=== PATIENT | male | born 1945 | race Asian ===

== ENCOUNTER 2020-12-31 10:42 | Inpatient (IN) | payer OTHER, SELFPAY ==
[~2020-12-31] VITALS: Ht 165.1 cm; Wt 59.9 kg
--- NOTE | 2020-12-31 10:43 | NUR ---
PT BIBA TO BED 09.
[2020-12-31 10:44] VITALS: BP 120/52
[2020-12-31] MEDS ORDERED: NACL 0.9% 500 ML IV SCH (10:50)
--- NOTE | 2020-12-31 10:50 | NUR ---
75 Y/O MALE BIBA FROM [facility]. PT C/O DIARRHEA & GENERALIZED WEAKNESS X 2 DAYS. PT GOT COVID VACCINE (MODERNA) 2 DOSES, LAST ONE 2 WEEKS AGO. PT RATES PAIN 7/10 ALL OVER, BUT SPECIFICALLY TO L ARM. PT HAS DIALYSIS M/W/F AND SHUT TO L UPPER ARM. PER MEDIC, PT IS NOT ON O2 AT HOME, ONLY FOR COMFORT REASONS. PER MEDIC, PT SPO2 89 RA ON ARRIVAL, PUT PT ON 2L N/C SPO2 98. ON ARRIVAL TO HOSPITAL, RA, O2 96% PT PUT ON 2L N/C NOW 99%. PT DENIES N/D/SOB. PT C/O WATERY DIAHHREA X2 DAYS. ABD IS ROUND, SOFT, AND NONTENDER WITH ACTIVE BOWEL SOUNDS X4 QUAD. PT STATES HE DOES NOT AMBULATE AT HOME. PT IS IN DIAPER, STILL PRODUCES URINE AND DENIES DYSURIA. NO EDEMA PRESENT. PT IS A/O X4 WITH EVEN AND UNLABORED RESPIRATIONS. SKIN INTACT. PT ATTACHED TO SEAT COVERS TRIMMER. BED IN LOWEST POSITION, BRAKES LOCKED, X2 SIDERAILS UP FOR SAFETY. PMH: HYPOTHYROID, ASTHMA, GOUT, DIVERTICULITIS, ESRD WITH DIALYSIS ( M, W,F), HEART SURGERY ALLERGIES: MONTEL[place]AST
--- NOTE | 2020-12-31 11:02 | NUR ---
ERMD AT BEDSIDE EVALUATING PT.
[2020-12-31 11:12] LABS: BASOPHILS # (AUTO) 0.1 K/uL (0.00-0.22); BASOPHILS % (AUTO) 0.2 % (0.0-2.0); EOSINOPHILS # (AUTO) 0.1 K/uL (0-0.4); EOSINOPHILS % (AUTO) 0.5 % (0.0-4.0); HEMATOCRIT 26.9 % (36-52); HEMOGLOBIN 8.8 g/dL (12.0-18.0); LYMPHOCYTES # (AUTO) 0.6 K/uL (2.0-11.5); LYMPHOCYTES % (AUTO) 2.5 % (20.5-51.1); MEAN CORPUSCULAR HEMOGLOBIN 30 pg (27-31); MEAN CORPUSCULAR HGB CONC 33 g/dL (33-37); MEAN CORPUSCULAR VOLUME 92.3 fL (80-94); MONOCYTES # (AUTO) 0.9 K/uL (0.8-1.0); NEUTROPHILS % (AUTO) 92.8 % (42.2-75.2); PLATELET COUNT (AUTO) 582 K/uL (140-450); RED BLOOD CELL COUNT(AUTO) 2.92 MIL/uL (4.20-6.10); WHITE BLOOD COUNT (AUTO) 22.7 K/uL (4.8-10.8)
[2020-12-31] MEDS ORDERED: KETOROLAC 30 MG/ML VIAL IVP ONE (11:15)
[2020-12-31] MEDS ORDERED: ALBU0.0912 IH (11:18)
[2020-12-31] MEDS ORDERED: ASPI-1822 PO (11:18)
[2020-12-31] MEDS ORDERED: ACET325C8 PO (11:18)
[2020-12-31] MEDS ORDERED: NUTR887L11 PO (11:18)
[2020-12-31] MEDS ORDERED: PANT40EC PO (11:18)
[2020-12-31] MEDS ORDERED: NUTR887L4 PO (11:18)
[2020-12-31] MEDS ORDERED: NIFE90TE3 PO (11:18)
[2020-12-31] MEDS ORDERED: CARV6.25 PO (11:18)
[2020-12-31] MEDS ORDERED: ALLO100T21 PO (11:18)
[2020-12-31] MEDS ORDERED: LEVO0.114 PO (11:18)
[2020-12-31] MEDS ORDERED: SEVE800T6 PO (11:18)
[2020-12-31] MEDS ORDERED: DOCU-299 PO (11:18)
[2020-12-31 11:27] LABS: PROTHROMBIN TIME 10.7 secs (10.8-13.4)
--- NOTE | 2020-12-31 11:27 | NUR ---
PT VOIDED IN URINAL. URINE SAMPLE COLLECTED AND GIVEN TO KIRSTIE MOBLEY TECH
--- NOTE | 2020-12-31 11:29 | NUR ---
RAD AT BEDSIDE.
[2020-12-31 11:30] LABS: ALBUMIN 1.9 g/dL (3.4-5.0); ANION GAP 16.4 (8-16); ASPARTATE AMINOTRANSFERASE 8 U/L (15-37); CARBON DIOXIDE 23.4 mmol/L (21-32); CHLORIDE 96 mmol/L (98-107); GLUCOSE 165 mg/dL (74-106); POTASSIUM 3.8 mmol/L (3.5-5.1); SODIUM SERUM 132 mmol/L (136-145); TOTAL BILIRUBIN 0.4 mg/dL (0.0-1.0)
--- NOTE | 2020-12-31 11:33 | NUR ---
PT TAKEN TO CT VIA KARLA
[2020-12-31 11:36] LABS: UREA NITROGEN, BLOOD 68 mg/dL (7-18)
--- NOTE | 2020-12-31 11:36 | NUR ---
CRITICAL LAB VALUES: BUN [address] CLEMENTE MADE AWARE
[2020-12-31 11:37] LABS: CREATININE 7.8 mg/dL (0.6-1.3)
--- NOTE | 2020-12-31 11:41 | NUR ---
PT BACK FROM CT AND CONNECTED BACK TO MONITORS.
[2020-12-31 11:55] LABS: FREE T4 (FREE THYROXINE) 0.67 ng/dL (0.76-1.46); THYROID STIMULATING HORMONE 22.09 uIU/mL (0.34-3.74)
[2020-12-31 12:20] LABS: APPEARANCE,URINE CLEAR (CLEAR); BILIRUBIN,URINE NEGATIVE (NEGATIVE); BLOOD, URINE NEGATIVE (NEGATIVE); COLOR,URINE YELLOW (YELLOW); LEUKOCYTE ESTERASE ,URINE NEGATIVE (NEGATIVE); NITRITE, URINE NEGATIVE (NEGATIVE); UGLUCOSE 1+ (NEGATIVE)
[2020-12-31 12:28] LABS: RBC,URINE 0-5 /HPF (0-5); WBC,URINE 0-5 /HPF (0-5)
[2020-12-31] MEDS ORDERED: LEVOFLOXACIN 500 MG/D5W PREMIX 100 ML IV ONE (13:40)
[2020-12-31] MEDS ORDERED: metroNIDAZOLE 500 MG/NS PREMIX 100 ML IV ONE (13:40)
--- NOTE | 2020-12-31 13:44 | NUR ---
Luis Armando maria in [facility] - 12/31/20 at 1401 by [email or web address] PT BACK FROM CT AND CONNECTED TO MONITORS
--- NOTE | 2020-12-31 14:00 | NUR ---
INGRID SOLIS SAMPLE COLLECTED AND GIVEN TO VENDING MACHINE FILLER
--- NOTE | 2020-12-31 14:30 | NUR ---
PT HAD DIARRHEA IN DIAPER. PT CHANGED. NEW DIAPER AND CHUCKS APPLIED.
[2020-12-31] MEDS ORDERED: PANTOPRAZOLE 40 MG TABEC PO PRN (14:40)
[2020-12-31] MEDS ORDERED: ACETAMINOPHEN 325 MG TAB PO PRN (14:40)
[2020-12-31] MEDS ORDERED: POTASSIUM CHLORIDE 10 MEQ TABER PO PRN (14:40)
[2020-12-31] MEDS ORDERED: ONDANSETRON 4 MG/2 ML VIAL IM/IVP PRN (14:40)
[2020-12-31] MEDS ORDERED: INSULIN LISPRO SLIDING SCALE 100 UNITS/ML VIAL SUBQ PRN (14:40)
[2020-12-31] MEDS ORDERED: DOCUSATE SODIUM 100 MG GELCAP PO PRN (14:40)
[2020-12-31] MEDS ORDERED: DEXT 5% /NACL 0.9% 1,000 ML IV SCH (14:40)
[2020-12-31] MEDS ORDERED: NACL 0.9% 1,000 ML IV SCH (14:40)
[2020-12-31] MEDS ORDERED: DEXTROSE 50% 50 ML SYR IVP PRN (14:40)
--- NOTE | 2020-12-31 14:41 | NUR ---
REPORT GIVEN TO MARY WALTON. ETA 25 MINS
--- NOTE | 2020-12-31 14:51 | NUR ---
DID NOT ADMINISTER LEVAQUIN 500MG. GIVING IT TO ACCEPTING CLAUDINE HERNANDEZ IN TELEMETRY. ADMISTERING HERVE AT THIS TIME.
--- NOTE | 2020-12-31 15:05 | NUR ---
RECEIVED PATIENT FROM ER NURSE. PATIENT IS AOX4 AND ABLE TO MAKE NEEDS KNOWN. RESPIRATION EVEN AND UNLABORED. ON 2L NC SATING AT 98%. NO S/S OF RESPIRATORY DISTRESS NOTED. SKIN IS WARM AND DRY. IV SITE ON RAC 20 G INFUSING FLUIDS WELL. HAS AV SHUNT ON LEFT UPPER ARM WITH STITCHES. ABDOMEN SOFT, FLAT, AND NON-DISTENDED. BOWEL SOUNDS ACTIVE IN ALL 4 QUADRANTS. PLAN OF CARE DISCUSSED. SAFETY PRECAUTIONS IN PLACE. BED IN LOW POSITION. WILL CONTINUE TO MONITOR.
--- NOTE | 2020-12-31 15:10 | NUR ---
Patient will be admitted to care of Dr. Piyush Smith. Admited to Telemetry. Will go to room 114. Belongings list completed. Report to Josh WALTON.
[2020-12-31 15:55] LABS: MAGNESIUM 2.1 mg/dL (1.8-2.4)
[2020-12-31 16:00] VITALS: BP 110/73
[2020-12-31] MEDS: allopurinoL 100 MG TAB PO SCH (17:22)
[2020-12-31] MEDS: SEVELAMER CARBONATE 800 MG TAB PO SCH (17:22)
[2020-12-31] MEDS: BLOOD GLUCOSE MONITORING 1 DEV DEV FS SCH ×2 (17:30→20:15)
--- NOTE | 2020-12-31 17:30 | NUR ---
BLOOD GLUCOSE CHECK IS 86. NO INSULIN COVERAGE NEEDED.
--- NOTE | 2020-12-31 17:48 | NUR ---
ALL SCHEDULED MEDS GIVEN. PT IS STABLE. NO DISTRESS NOTED. WILL CONTINUE TO MONITOR.
--- NOTE | 2020-12-31 19:25 | NUR ---
ENDORSED TO AUTOMOTIVE SERVICE WRITER NURSE FOR CONTINUITY OF CARE. PT IS STABLE.
[2020-12-31 20:00] VITALS: BP 96/57
--- NOTE | 2020-12-31 20:00 | NUR ---
RECEIVED REPORT AT BEDSIDE FOR CONTINUITY OF CARE, PT IN STABLE CONDITION. PT IS AOX4, HE IS LYING IN BED WITH 2 LITERS 02 VIA N/C. HE HAS A RAC 20 GUAGE INTACT, ASYMPTOMATIC AND RUNNING NORMAL SALINE AT 60MLS/HR. PT NOTED WITH NEW LAV SHUNT THRILL AND BRUIT FELT. OTHERWISE SKIN INTACT. PT HAS ORDERED HD TOMORROW. V/S FOLLOWS: T 97.6 P 79 R 18 B/P 96/57 02 100% ON 2 LITERS N/C. ALL VERBALIZED REQUESTS ATTENDED BY STAFF. AND ALL ORDERED PRECAUTIONS IN PLACE.
--- NOTE | 2020-12-31 20:30 | NUR ---
PT FINGERSTICK IS 107, PT GIVEN ENSURE A SNACK. PT REQUESTED PO/PRN NEB TREATMENT, INFORMED RT TO FOLLOW UP. ALL ORDERED PRECAUTIONS IN PLACE.
--- NOTE | 2020-12-31 20:47 | NUR ---
PT SPO2 100% ON 2LNC HR 82 f 20. WILL CONTINUE TO MONITOR
[2020-12-31] MEDS ORDERED: metroNIDAZOLE 500 MG/NS PREMIX 100 ML IV SCH (21:00)
--- NOTE | 2020-12-31 21:30 | NUR ---
PT IN BED WAS GIVEN ASSISTANCE WITH PHONE CALL AND ALL OTHER VERBALIZED REQUESTS ATTENDED BY STAFF.
--- NOTE | 2020-12-31 22:45 | NUR ---
ROUNDS DONE, PT IN BED RESTING WITH EYES CLOSED, BUT AROUSABLE TO NAME. IV SITE INTACT AND RUNNING NORMAL SALINE AT 60 MLS/HR. PT DENIES ANY PAIN OR DISCOMFORT AT THIS TIME,. 02 IS 99% WITH 2 LITERS VIA N/C. ALL FALLS PRECAUTIONS IN PLACE.
[2021-01-01] VITALS: BP 111/56
--- NOTE | 2021-01-01 00:15 | NUR ---
PT IN BED RESTING WITH EYES CLOSED BUT AROUSABLE TO NAME. PT HAS NORMAL SALINE RUNNING AT 60MLS/HR VIA RAC 20G . RESPIRATIONS EVEN AND UNLABORED WITH 2 LITERS 02 VIA N/C. V/S FOLLOWS: T 97.3 P 82 R 19 B/P 111/56 02 100%. ALL ORDERED PRECAUTIONS IN PLACE.
--- NOTE | 2021-01-01 02:30 | NUR ---
PT HAD LARGE LOOSE BM AND WAS TURNED, CHANGED AND REPOSITIONED IN BED. [address] AND RUNNING AT 2 LITERS. IV SITE ON RAC INTACT AND CONTINUES ON NORMAL SALINE AT 60 MLS/HR. ALL ORDERED PRECAUTIONS IN PLACE.
[2021-01-01 04:00] VITALS: BP 92/46
--- NOTE | 2021-01-01 06:00 | NUR ---
PT SITTING IN BED HOB UP 35% HE CONTINUES ON 2 LITERS VIA N/C. N/S CONTINUES AT 60MLS/HR. PT FINGERSTICK IS 96, NO HUMALOG COVERAGE NEEDED. PT GIVEN DUE MEDS OF SYNTHROID. NO C/O VOICED AT THIS TIME. ALL ORDERED PRECAUTIONS IN PLACE.
[2021-01-01 06:20] LABS: MEAN CORPUSCULAR HGB CONC 32 g/dL (33-37); RED BLOOD CELL COUNT(AUTO) 2.39 MIL/uL (4.20-6.10)
[2021-01-01 06:30] LABS: MEAN CORPUSCULAR HEMOGLOBIN 30 pg (27-31); MEAN CORPUSCULAR VOLUME 92.8 fL (80-94); RED CELL DISTRIBUTION WIDTH 16.4 % (11.6-13.7); WHITE BLOOD COUNT (AUTO) 24.7 K/uL (4.8-10.8)
[2021-01-01 06:31] LABS: ANION GAP 18.6 (8-16); CARBON DIOXIDE 20.7 mmol/L (21-32); CHLORIDE 100 mmol/L (98-107); GLUCOSE 111 mg/dL (74-106); POTASSIUM 4.3 mmol/L (3.5-5.1); SODIUM SERUM 135 mmol/L (136-145)
[2021-01-01 06:42] LABS: CREATININE 8.4 mg/dL (0.6-1.3); UREA NITROGEN, BLOOD 94 mg/dL (7-18)
[2021-01-01] MEDS: LEVOTHYROXINE 0.112 MG TAB PO SCH (06:54)
[2021-01-01 06:57] LABS: HEMATOCRIT 22.3 % (36-52); HEMOGLOBIN 7.2 g/dL (12.0-18.0)
[2021-01-01] MEDS: BLOOD GLUCOSE MONITORING 1 DEV DEV FS SCH ×4 (06:58→21:29)
[2021-01-01 07:03] LABS: EOSINOPHILS % (MANUAL) 4 % (0-4); LYMPHOCYTES % (MANUAL) 8 % (20-46); MONOCYTES % (MANUAL) 6 % (5-12)
[2021-01-01 07:04] LABS: PLATELET COUNT (AUTO) 508 K/uL (140-450)
--- NOTE | 2021-01-01 07:25 | NUR ---
RECEIVED BEDSIDE REPORT FROM NIGHTSHIFT NURSE FOR CONTINUITY OF CARE.
[2021-01-01 08:00] VITALS: BP 106/50
[2021-01-01] MEDS: SEVELAMER CARBONATE 800 MG TAB PO SCH ×3 (08:00→17:16)
[2021-01-01] MEDS: NIFEdipine 90 MG TABER PO SCH (08:50)
[2021-01-01] MEDS: carvediloL 6.25 MG TAB PO SCH (08:51)
[2021-01-01] MEDS: ASPIRIN 81 MG TAB.CHEW PO SCH (08:51)
--- NOTE | 2021-01-01 08:51 | NUR ---
HELD AM MEDS DUE TO SCHEDULED DIALYSIS. ASSISTED PATIENT W/ TOILETING, SMALL SOFT BM. PATIENT ABLE TO TURN AND ASSIST W/ CARES. PATIENT ABLE TO MAKE NEEDS KNOWN, AOx4. SEEN PERFORMING ROUNDS AT BEDSIDE. WILL CONTINUE TO MONITOR. PATIENT HAS BREAKFAST TRAY AT BEDSIDE. SAFETY MEASURES IN PLACE. WILL CONTINUE TO MONITOR.
[2021-01-01] MEDS: LEVOFLOXACIN 250 MG/D5 PREMIX 50 ML IV SCH (09:00)
--- NOTE | 2021-01-01 09:19 | NUR ---
FNS REFERRAL RECEIVED FOR DIARRHEA >3 DAYS. PATIENT HAS BEEN SCREENED AND CATEGORIZED HIGH NUTRITION RISK. PATIENT WILL BE SEEN WITHIN 1-2 DAYS OF ADMISSION. 01/01/21-01/02/[address]
[2021-01-01] MEDS ORDERED: ALBUMIN HUMAN 25% 200 ML IV SCH (11:00)
[2021-01-01 12:00] VITALS: BP 105/60
[2021-01-01] MEDS: VANCOMYCIN 1,000 MG VIAL PO SCH ×2 (12:00→18:00)
--- NOTE | 2021-01-01 12:26 | NUR ---
SOCIAL WORK NOTE: Patient's Orientation Unable To Assess Information Provided By GOOD SHAFER - SON Comments SW WAS UNABLE TO MEET PATIENT AT BEDSIDE. SW COMPLETED ASSESSMENT WITH PATIENT'S SON. Surface Grinder, Realtionship and Phone Number [facility] [phone] Healthcare Power of Rubber Molder No Does Patient Have a POLST No Identifying Problems No Social Work Triggers Is A Social Work Consult Needed No Mandate Report Filed No Explanation Of Identifying Problems PATIENT IS A 75-YEAR-OLD MALE ADMITTED FOR INFLAMMATORY INFECTIOUS COLITIS. PATIENT HASP MHX OF CARDIAC DISORDERS, DIABETES, AND HYPERTENSION. Admitted From Fdc Facility Fdc Facility [facility] - [phone] Pre-Admission Level Of Functioning Status Independent/Ambulatory Level Of Functioning Comment PER SON, PATIENT IS INDEPENDENT AT BASELINE. Prior Resources/Services Used In Last 12 Months SNF Rehab/Skilled Prior Resources/Service Comments PATIENT IS A SKILLED PATIENT AND ON A BED HOLD. Prior DME No Prior DME Used Dialysis Hemodialysis Name And Phone Number of Dialysis Facility [facility] Out[facility] Days W ESRD Outpatient Time 0400 Living Situation Lives With Family House Other Living Situation/Comment PER SON, PATIENT LIVES AT [address] [place] [address]. Patient Had Caregiver No Home Support No Caregiver Issues Financial Issues No Known Financial Issue Referral To The Financial Counselor Needed No Factors/Needs No D/C Needs Identified Pt/Rep Participated In Discharge Plan Yes Patient/Family Agress With Discharge Plan Yes Discharge Plan Comments TENTATIVE DISCHARGE PLAN IS FOR PATIENT TO RETURN TO [facility]. DC Plan Status Initiated
--- NOTE | 2021-01-01 14:25 | NUR ---
01/01/21 RD INITIAL ASSESSMENT COMPLETED PLEASE REFER TO NUTRITION ASSESSMENT UNDER CARE ACTIVITY FOR ESTIMATED NUTRITIONAL NEEDS. 1. RECOMMEND MECHANICAL SOFT LOW FIBER RENAL 80 GM CCHO DIET TOLERATED 2. ENCOURAGE PO INTAKE ABOVE 75% 3. RECOMMEND NEPRO BID 4. RD TO FOLLOW-UP 2-3 DAYS, HIGH RISK AUGUSTA SUGGS, RD
--- NOTE | 2021-01-01 15:14 | NUR ---
ADMINISTERED PRESCRIBED MED PER MD ORDER. PATIENT IS RESTING. NO SIGNS OF DISTRESS NOTED. LUNCH TRAY AT BEDSIDE, PATIENT ATE APROX 25%. SAFETY MEASURES IN PLACE. WILL CONTINUE TO MONITOR.
[2021-01-01 16:00] VITALS: BP 110/55
--- NOTE | 2021-01-01 17:24 | NUR ---
ADMINISTERED PRESCRIBED MEDS PER MD ORDER. PATIENT RESTING IN BED. AWOKEN UPON ARRIVAL. MEDICATION EDUCATION PROVIDED. PATIENT VERBALIZED UNDERSTANDING. SAFETY MEASURES IN PLACE. WILL CONTINUE TO MONITOR.
--- NOTE | 2021-01-01 19:14 | NUR ---
BEDSIDE ENDORSEMENT TO NIGHTSHIFT NURSE FOR CONTINUITY OF CARE.
[2021-01-01 20:00] VITALS: BP 100/63
--- NOTE | 2021-01-01 21:22 | NUR ---
INFORM DR. ALLAN THAT THE PT IS ALLERGY TO METRONIDAZOLE - WILL WAIT THE RESPONSE
--- NOTE | 2021-01-01 22:14 | NUR ---
NO RESPONSE FROM DR. ALLAN - CHARGE NURSE INFORM - WILL TALK PHARMACIST WHY HE CARRIED OUT INSPITE OF PT HAS ALLERGY TO METRONIDAZOLE . Addendum: 01/01/21 at 2219 by Valeria Troncoso RN PER PHARMACY HE VERRIFIED HE METRONIDAZOLE HE SAID - IT IS STILL SAFE TO ADMINISTER TO THE PT . - CHARGE NURSE INFORM .
[2021-01-01] MEDS ORDERED: SODIUM ZIRCONIUM CYCLOSILICATE 10 GM POWD.PACK ONE (22:23)
[2021-01-01] MEDS: metroNIDAZOLE 500 MG/NS PREMIX 100 ML IV SCH (22:42)
[2021-01-02] VITALS: BP 100/60
--- NOTE | 2021-01-02 | NUR ---
MADE ROUNDS , NO S/X OF ACUTE DISTRESS NOTED . WILL CONT. TO MONITOR
[2021-01-02] MEDS: VANCOMYCIN 1,000 MG VIAL PO SCH ×4 (00:50→17:35)
[2021-01-02 04:00] VITALS: BP 112/60
--- NOTE | 2021-01-02 04:00 | NUR ---
NO COMPLAIN MADE . NO S/X OF CAUTE DISTRESS NOTED . WILL CONT. TO MONITOR .
--- NOTE | 2021-01-02 06:00 | NUR ---
RESTING ON BED .
[2021-01-02] MEDS: metroNIDAZOLE 500 MG/NS PREMIX 100 ML IV SCH (06:31)
[2021-01-02] MEDS: BLOOD GLUCOSE MONITORING 1 DEV DEV FS SCH ×4 (06:31→20:04)
[2021-01-02] MEDS: LEVOTHYROXINE 0.112 MG TAB PO SCH (06:36)
[2021-01-02 06:47] LABS: ANION GAP 14.8 (8-16); CARBON DIOXIDE 24.8 mmol/L (21-32); CHLORIDE 101 mmol/L (98-107); GLUCOSE 108 mg/dL (74-106); POTASSIUM 3.6 mmol/L (3.5-5.1); SODIUM SERUM 137 mmol/L (136-145); UREA NITROGEN, BLOOD 49 mg/dL (7-18)
[2021-01-02 07:05] LABS: BASOPHILS % (AUTO) 0.2 % (0.0-2.0); EOSINOPHILS # (AUTO) 0.1 K/uL (0-0.4); EOSINOPHILS % (AUTO) 0.6 % (0.0-4.0); HEMATOCRIT 21.8 % (36-52); LYMPHOCYTES # (AUTO) 0.6 K/uL (2.0-11.5); LYMPHOCYTES % (AUTO) 2.5 % (20.5-51.1); MEAN CORPUSCULAR HEMOGLOBIN 30 pg (27-31); MEAN CORPUSCULAR HGB CONC 32 g/dL (33-37); MEAN CORPUSCULAR VOLUME 92.8 fL (80-94); NEUTROPHILS # (AUTO) 23.4 K/uL (1.8-7.7); NEUTROPHILS % (AUTO) 92.7 % (42.2-75.2); PLATELET COUNT (AUTO) 514 K/uL (140-450); RED BLOOD CELL COUNT(AUTO) 2.35 MIL/uL (4.20-6.10); RED CELL DISTRIBUTION WIDTH 16.5 % (11.6-13.7)
[2021-01-02 07:13] LABS: CREATININE 5.8 mg/dL (0.6-1.3)
--- NOTE | 2021-01-02 07:36 | NUR ---
ENDORSED - PT - STABLE .
--- NOTE | 2021-01-02 07:36 | NUR ---
RECEIVED TRANSFER OF CARE REPORT FROM AM RN FOR CONTINUATION OF CARE.
--- NOTE | 2021-01-02 07:37 | NUR ---
PT FOUND AWAKE RESTING IN BED. PT STATES NO PAIN, NO DISTRESS, AND NO MEDICAL COMPLAINTS. PT HAS VISIBLE EQUAL RISE AND FALL UPON RESPIRATION. BED LOCKED IN LOWEST POSITION WITH 2 SIDE RAILS UP FOR SAFETY AND CALL LIGHT WITHIN REACH.
[2021-01-02 08:00] VITALS: BP 102/53
[2021-01-02 08:21] LABS: WHITE BLOOD COUNT (AUTO) 25.2 K/uL (4.8-10.8)
[2021-01-02] MEDS: carvediloL 6.25 MG TAB PO SCH (09:00)
[2021-01-02] MEDS: NIFEdipine 90 MG TABER PO SCH (09:00)
[2021-01-02] MEDS: PHARMACY COMMENTS MC SCH (09:00)
--- NOTE | 2021-01-02 09:30 | NUR ---
SPOKE WITH DR. COLE ABOUT PT HGB BEING 7.0. PER DR. COLE, HE SAID TO MONITOR AND TO REDRAW AROUND 1800. ORDERS RECEIVED. SAFETY MEASURES IN PLACE, WILL CONTINUE TO MONITOR
[2021-01-02] MEDS: ASPIRIN 81 MG TAB.CHEW PO SCH (09:48)
[2021-01-02] MEDS: SEVELAMER CARBONATE 800 MG TAB PO SCH ×3 (09:48→17:35)
--- NOTE | 2021-01-02 11:04 | NUR ---
PER DR COLE, DISCONTINUE FLAGYL.
--- NOTE | 2021-01-02 11:30 | NUR ---
PT BLOOD SUGAR IS 110. NO INSULIN NEEDED AT THIS TIME PER MD ORDER. SAFETY MEASURES IN PLACE. WILL CONTINUE TO MONITOR
[2021-01-02 12:00] VITALS: BP 143/76
--- NOTE | 2021-01-02 12:01 | NUR ---
PT HAD SOFT SEMI-FORMED/LIQUID BOWEL MOVEMENT. PT PERINEAL AREA IS CLEANED AND SHEETS CHANGED. PT TOLERATED CLEANING WELL.
--- NOTE | 2021-01-02 12:52 | NUR ---
PT FOUND AWAKE RESTING IN BED. PT STATES NO PAIN, NO DISTRESS, AND NO MEDICAL COMPLAINTS. PT HAS VISIBLE EQUAL RISE AND FALL UPON RESPIRATION. ASSISTED PT TO POSITION OF COMFORT. PROVIDED BLANKET TO PT. BED LOCKED IN LOWEST POSITION WITH 2 SIDE RAILS UP FOR SAFETY AND CALL LIGHT WITHIN REACH.
--- NOTE | 2021-01-02 13:29 | NUR ---
PT HAD SOFT SEMI-FORMED/LIQUID BROWN BOWEL MOVEMENT. PT PERINEAL AREA IS CLEANED. PT TOLERATED CLEANING WELL.
--- NOTE | 2021-01-02 14:42 | NUR ---
PT HAD 2 SOFT SEMI-FORMED/LIQUID BROWN BOWEL MOVEMENT. PT PERINEAL AREA IS CLEANED. PT TOLERATED CLEANING WELL. DR COLE NOTIFIED.
[2021-01-02] MEDS ORDERED: LOPERAMIDE 2 MG CAP PO PRN ×2 (14:55→20:45)
[2021-01-02] MEDS ORDERED: LOPERAMIDE 2 MG CAP PO SCH (15:15)
[2021-01-02] MEDS ORDERED: BISMUTH SUBSALICYLATE 15 ML UDBTL PO SCH (15:15)
--- NOTE | 2021-01-02 15:24 | NUR ---
PT HAD 2 LIQUID BROWN BOWEL MOVEMENT. PT PERINEAL AREA IS CLEANED. PT TOLERATED CLEANING WELL.
--- NOTE | 2021-01-02 15:34 | NUR ---
PT FOUND AWAKE RESTING IN BED. PT STATES NO DISTRESS. ADMINISTERED PRESCRIBED MEDICATIONS TO PT. PT HAS VISIBLE EQUAL RISE AND FALL UPON RESPIRATION. BED LOCKED IN LOWEST POSITION WITH 2 SIDE RAILS UP FOR SAFETY AND CALL LIGHT WITHIN REACH.
[2021-01-02 16:00] VITALS: BP 112/60
--- NOTE | 2021-01-02 16:30 | NUR ---
PT BLOOD SUGAR IS 106. NO INSULIN NEEDED AT THIS TIME. SAFETY MEASURES IN PLACE. WILL CONTINUE TO MONITOR
--- NOTE | 2021-01-02 16:44 | NUR ---
PT TO RECIEVE HD ON 01/03 INFORMED CHAPPELL. CHAPPELL VERBALIZED UNDERSTANDING. SAFETY MEASURES IN PLACE. WILL CONTINUE TO MONITOR
[2021-01-02] MEDS: allopurinoL 100 MG TAB PO SCH (17:35)
--- NOTE | 2021-01-02 17:39 | NUR ---
ADMINISTERED SCHED MED PRESCRIBED PER MD ORDER. PT TOLERATED WELL. MEDICATION EDUCATION PERFORMED. PT VERBALIZED UNDERSTANDING. SAFETY MEASURES IN PLACE. WILL CONTINUE TO MONITOR
[2021-01-02 18:22] LABS: HEMATOCRIT 22.1 % (36-52); MEAN CORPUSCULAR HEMOGLOBIN 29 pg (27-31); MEAN CORPUSCULAR HGB CONC 32 g/dL (33-37); MEAN CORPUSCULAR VOLUME 93.1 fL (80-94); PLATELET COUNT (AUTO) 481 K/uL (140-450); RED BLOOD CELL COUNT(AUTO) 2.37 MIL/uL (4.20-6.10); RED CELL DISTRIBUTION WIDTH 16.7 % (11.6-13.7)
--- NOTE | 2021-01-02 18:40 | NUR ---
PT RESTING IN BED. ABLE TO MAKE NEEDS KNOWN. RESPIRATIONS EVEN AND UNLABORED WITH NO SOB OR RESPIRATORY DISTRESS. WILL CONTINUE TO MONITOR
[2021-01-02 18:54] LABS: HEMOGLOBIN 6.9 g/dL (12.0-18.0); WHITE BLOOD COUNT (AUTO) 25.3 K/uL (4.8-10.8)
--- NOTE | 2021-01-02 18:55 | NUR ---
CRITICAL LAB WBC 25.3 AND HGB 6.9 RECEIVED FROM LAB. AIRCRAFT ENGINE CYLINDER MECHANIC DOCTOR NOTIFIED. Addendum: 01/02/21 at 1923 by Case Waite RN RN CRITICAL LAB WBC 25.3 AND HGB 6.[address] COLE NOTIFIED AND GAVE ORDERS FOR 1 UNIT [facility].
[2021-01-02 19:16] LABS: EOSINOPHILS % (MANUAL) 1 % (0-4); LYMPHOCYTES % (MANUAL) 6 % (20-46); MONOCYTES % (MANUAL) 4 % (5-12)
--- NOTE | 2021-01-02 19:22 | NUR ---
TRANSFER OF CARE REPORT PROVIDED TO PM RN.
--- NOTE | 2021-01-02 19:23 | NUR ---
RECEIVED REPORT FROM DAY SHIFT NURSE. PT IN BED RESTING. PT AAOX4, ABLE TO MAKE NEEDS KNOWN. RESPIRATIONS ARE EVEN AND UNLABORED TO ROOM AIR. ABDOMEN SOFT AND NON-TENDER. SKIN IS WARM, DRY, AND INTACT. PT WITH IV ACCESS ON R HANG G 22 PATENT AND INTACT, TKO. PT ALSO WITH LEFT AV SHUNT, LEFT ARM PRECAUTION IN PLACE. PT DENIES ANY PAIN OR DISCOMFORT AT THIS TIME. NO REQUESTS MADE. SAFETY MEASURES IN PLACE, CALL LIGHT WITHIN REACH. WILL CONTINUE TO MONITOR.
[2021-01-02 20:00] VITALS: BP 148/64
[2021-01-02] MEDS ORDERED: HYDRAGUARD CREAM TP ONE (20:10)
--- NOTE | 2021-01-02 20:58 | NUR ---
PT HAD ANOTHER DIARRHEA EPISODE, PT GIVEN PRN IMODIUM. WILL CONTINUE TO MONITOR.
--- NOTE | 2021-01-02 21:30 | NUR ---
STARTED TRANSFUSION OF 1 UNIT PRBC. PRE TRANSFUSION VS STABLE. 2 NURSE VERIFICATION DONE PRIOR. WILL CONTINUE TO MONITOR.
--- NOTE | 2021-01-02 23:55 | NUR ---
1 UNIT PRBC TRANSFUSED. VS STABLE. NO REACTIONS NOTED. PT DENIES ANY PAIN OR DISCOMFORT. WILL CONTINUE TO MONITOR.
[2021-01-03] VITALS: BP 138/70
[2021-01-03] MEDS: VANCOMYCIN 1,000 MG VIAL PO SCH ×4 (00:25→17:41)
--- NOTE | 2021-01-03 02:24 | NUR ---
ROUNDS MADE. PT ASLEEP. VISIBLE CHEST RISE AND FALL NOTED. NO S/SX OF PAIN OR DISCOMFORT NOTED. PT KEPT COMFORTABLE. SAFETY MEASURES IN PLACE, CALL LIGHT WITHIN REACH. WILL CONTINUE TO MONITOR.
[2021-01-03 04:00] VITALS: BP 140/36
--- NOTE | 2021-01-03 04:11 | NUR ---
VS STABLE. PT RESTING IN BED, PT ASSISTED IN REPOSITIONING SELF COMFORTABLY. NO REQUESTS MADE AT THIS TIME. WILL CONTINUE TO MONITOR.
[2021-01-03] MEDS: LEVOTHYROXINE 0.112 MG TAB PO SCH (06:00)
--- NOTE | 2021-01-03 06:30 | NUR ---
PT PULLED OUT IV, CANNULA INTACT. NEW IV ACCESS INSERTED ON RIGHT FA G22 PATENT AND INTACT.
[2021-01-03 06:42] LABS: HEMATOCRIT 25.2 % (36-52); MEAN CORPUSCULAR HEMOGLOBIN 30 pg (27-31); MEAN CORPUSCULAR HGB CONC 32 g/dL (33-37); MEAN CORPUSCULAR VOLUME 92.3 fL (80-94); PLATELET COUNT (AUTO) 488 K/uL (140-450); RED BLOOD CELL COUNT(AUTO) 2.73 MIL/uL (4.20-6.10); RED CELL DISTRIBUTION WIDTH 16.3 % (11.6-13.7); WHITE BLOOD COUNT (AUTO) 22.8 K/uL (4.8-10.8)
[2021-01-03 06:50] LABS: HEMOGLOBIN 8.1 g/dL (12.0-18.0)
[2021-01-03] MEDS: BLOOD GLUCOSE MONITORING 1 DEV DEV FS SCH ×4 (06:52→21:58)
--- NOTE | 2021-01-03 07:17 | NUR ---
ENDORSED TO DAY SHIFT NURSE FOR CONTINUITY OF CARE
--- NOTE | 2021-01-03 07:22 | NUR ---
RECEIVED REPORT FROM NIGHTSHIFT NURSE. PT RESTING IN BED. ABLE TO MAKE NEEDS KNOWN RESPIRATIONS EVEN AND UNLABORED WITH NO SOB OR RESPIRATORY DISTRESS. SKIN WARM AND DRY TO TOUCH. IV SITE IN RFA 22G IS CLEAN, DRY, AND INTACT. SAFETY MEASURES IN PLACE. WILL CONTINUE TO MONITOR
[2021-01-03 07:24] LABS: EOSINOPHILS % (MANUAL) 2 % (0-4); LYMPHOCYTES % (MANUAL) 5 % (20-46); MONOCYTES % (MANUAL) 7 % (5-12)
[2021-01-03 07:58] LABS: ANION GAP 16.2 (8-16); CARBON DIOXIDE 22.8 mmol/L (21-32); CHLORIDE 101 mmol/L (98-107); GLUCOSE 113 mg/dL (74-106); SODIUM SERUM 136 mmol/L (136-145); UREA NITROGEN, BLOOD 59 mg/dL (7-18)
[2021-01-03 08:00] VITALS: BP 141/44
[2021-01-03] MEDS: SEVELAMER CARBONATE 800 MG TAB PO SCH ×3 (08:00→17:41)
[2021-01-03 08:04] LABS: CREATININE 7.2 mg/dL (0.6-1.3)
[2021-01-03] MEDS: PHARMACY COMMENTS MC SCH (09:00)
[2021-01-03] MEDS: NIFEdipine 90 MG TABER PO SCH (09:00)
[2021-01-03] MEDS: carvediloL 6.25 MG TAB PO SCH (09:00)
[2021-01-03] MEDS: ASPIRIN 81 MG TAB.CHEW PO SCH (09:00)
--- NOTE | 2021-01-03 09:00 | NUR ---
HD NURSE HERE. REPORT GIVEN. HELD BP MEDS DUE TO HD TODAY. WILL HANG ATB WHEN PT COMPLETES HD. SAFETY MEASURES IN PLACE. WILL CONTINUE TO MONITOR
--- NOTE | 2021-01-03 09:21 | NUR ---
DC PLANNIN YRS OLD MALE PATIENT WAS ADMITTED FROM [facility] WITH A DX OF INFLAMMATORY INFECTIOUS COLITIS ,PNEUMONIA. PT HAS A HX OF DM ESRD ON HEMODIALYSIS MWF, CABG AND HTN. CXR SHOWED LEFT BASILAR ATELECTASIS RAPID COVID TEST NEGATIVE , PCR IS PENDING STARTED IVF, IV ABX LEVAQUIN AND FLAGYL, STOOL FOR C-DIFF SENT TO LAB, AWAITING FOR RESULT. CONSULTED WITH NEPHRO, GI ,ID AND PULMO. H/H WAS 6.1 TRANSFUSED 1 UNIT PRBC. DC PLAN TO GO BACK TO [facility] WHEN STABLE CM TO FOLLOW Addendum: 01/03/21 at 1251 by Brenda Rivera CM DC CLINICAL REIMBURSEMENT SPECIALIST: SPOKE TO JOHN STEPHEN FROM [facility] [phone] REGARDING DISCHARGE PLANS. NOTIFIED HER THAT PATIENT DOES NOT WANT TO GO BACK TO [facility] BUT HE DOES WANT TO GO TO SNF A PENITENTIARY PATIENT. SHE STATED THAT IT WOULD BE EASIER TO SEND PATIENT SKILLED FIRST AND HAVE HIM TRANSITIONED TO PENITENTIARY. SHE REQUESTED THAT WE DO A PT EVAL FOR PATIENT AND ONCE WE HAVE THE PT EVAL TO FAX IT TO [facility] AT [phone], FROM THERE SHE WILL HELP US FIND PLACEMENT. PT EVAL HAS BEEN ORDERED. Addendum: 01/03/21 at 1316 by Caleb LONG CECILIA MET PATIENT AT BEDSIDE WHO STATED THAT HE WOULD LIKE TO NOT RETURN TO [facility]. PATIENT STATED THAT HE WOULD LIKE A PENITENTIARY PLACEMENT AT ANOTHER FACILITY. CECILIA INFORMED JOHN ROSENTHAL. Addendum: 01/03/21 at 1440 by Brenda Rivera CM SELENE CLINICAL REIMBURSEMENT SPECIALIST: PT FABRICIOAL COMPLETE, FAXED TO [facility] AND NOTIFIED JOHN OLMOS [phone]. SHE STATED THAT I CAN TRY SENDING REFERRAL TO [facility] [place] [phone] Addendum: 01/03/21 at 1449 by Brenda Rivera CM SELENE BURNHAM: SPOKE TO BERNICE IN ADMISSIONS AT [facility] [phone] HE TOLD BE TO FAX CLINICALS, THEY SHOULD BE ABLE TO ACCEPT PATIENT SKILLED AND SWITCH HIM OVER PENITENTIARY. Addendum: 01/03/21 at 1627 by Brenda Rivera CM SELENE BURNHAM: CALLED LAB TO FOLLOW UP ON THE C-DIFF LAB. THEY STATED THAT THE STOOL SAMPLE WAS NEVER COLLECTED BY THE NURSE. LAB STATED THAT THE NURSE CAN COLLECT A NEW SAMPLE AND DROP IT OFF AT LAB THEY WILL THEN HAVE TO SEND IT OUT TO [facility]. NOTIFIED CHARGE NURSE ROSALIE Addendum: 01/04/21 at 0919 by Brenda Rivera CM SELENE BURNHAM: SPOKE TO REBECA IN ADMISSIONS AT [facility]. SHE STATED THAT THEY WOULD NOT BE ABLE TO TRANSITION THIS PATIENT PENITENTIARY AFTER BEING SKILLED BECAUSE THEY DO NOT HAVE THE SPACE. Addendum: 01/04/21 at 0921 by Brenda Rivera CM SELENE BURNHAM: FOLLOWED UP WITH LAB THIS MORNING AND SPOKE TO INES. HE WAS ABLE TO CONTACT [facility] TO GET AN UPDATE, HE STATED THAT HE TOLD THEM WE NEEDED THE RESULTS STAT. THEY SHOULD HAVE THE RESULTS BY NOON. WILL FOLLOW UP. Addendum: 01/04/21 at 1212 by Brenda Rivera CM SELENE BURNHAM: PATIENTS RESULTS FOR C-DIFF CAME BACK POSITIVE. FOLLOWED UP WITH BERNICE AT [facility] THEY DO NOT HAVE AN AVAILABLE ISOLATION BED BUT HE WILL SEND THE REFERRAL TO THEIR SISTER FACILITY [facility]. HE WILL GET BACK TO ME WITHIN THE NEXT COUPLE HOURS TO LET ME KNOW IF THEY CAN ACCEPT. Addendum: 01/04/21 at 1449 by Brenda Rivera CM SELENE BURNHAM: RECEIVED A PHONE CALL FROM BERNICE FONTANEZ [facility] THEIR SISTER FACILITY IS ABLE TO ACCEPT BUT THEY WILL NEED HANG Addendum: 01/04/21 at 1453 by Brenda Rivera CM SELENE BURNHAM: CONTACTED NICKOLAS AT [facility] SHE IS GOING TO NOTIFY INSURANCE THAT WE WILL NEED HANG FOR THIS PATIENT. Addendum: 01/04/21 at 1520 by Brenda Rivera CM SELENE BURNHAM: RECEIVED A PHONE CALL FROM CARRIE AT [facility] [phone]. SHE STATED THAT SHE CAN BE CONTACTED AT THAT NUMBER EVEN ON THE WEEKENDS. I PROVIDED HER WITH THE CM NUMBER ARIADNA TO FOLLOW UP WITH FOR TOMORROW. Addendum: 01/04/21 at 1556 by Brenda Rivera CM SELENE BURNHAM: RECEIVED A CALL FROM JOHN NARVAEZ FROM [facility] SHE NEEDED THE NPI AND TID OF [facility]. SPOKE TO CARRIE FROM [facility] TO GET INFO. PROVIDED IT TO [facility]. TID [id number] Addendum: 01/05/21 at 1203 by Ariadna Chaudhry RN DC PLANNING: CALLED [facility] ADMIN SPOKE WITH CARRIE NOTIFIED THAT PT HAS WBC OF 19 TRENDING DOWN FROM 22 DUE TO C-DIFF AND IS DISCHARGING WITH VANCOMYCIN PO ABX. PER CARRIE WILL ACCEPT PT AND CAN GO TO ROOM 127B . CALLED [facility] [phone] FOR TRANSPORT AUTH CM TO FOLLOW Addendum: 01/05/21 at 1435 by Caleb LONG CECILIA CONTACTED PATIENT'S FAMILY WHO STATED THEY WERE AGREEABLE TO PATIENT BEING DISCHARGED TO [facility]. CECILIA CONTACTED [facility] AND RECEIVED AUTHORIZATION FOR TRANSPORT [phone]. CECILIA PROVIDED AUTHORIZATION TO [facility] AND ARRANGED FOR TRANSPORTATION TO BE AT 4PM. CECILIA NOTIFIED SCALE EXPERT
--- NOTE | 2021-01-03 11:30 | NUR ---
PT BLOOD SUGAR IS 130. NO INSULIN NEEDED AT THIS TIME. WILL CONTINUE TO MONITOR
--- NOTE | 2021-01-03 11:57 | NUR ---
ADMINISTERED SCHED MED PRESCRIBED PER MD ORDER. PT TOLERATED WELL. MEDICATION EDUCATION PERFORMED. PT VERBALIZED UNDERSTANDING. SAFETY MEASURES IN PLACE. WILL CONTINUE TO MONITOR
[2021-01-03 12:00] VITALS: BP 141/44
--- NOTE | 2021-01-03 12:45 | NUR ---
PT HAD 3L OUT. NO SIGNS OF BLEEDING OR DISTRESS. WILL CONTINUE TO MONITOR
[2021-01-03] MEDS: LEVOFLOXACIN 250 MG/D5 PREMIX 50 ML IV SCH (13:23)
[2021-01-03] MEDS: HYDROcodone/APAP 7.5/325 MG 1 TAB PO PRN ×2 (13:24→23:36)
--- NOTE | 2021-01-03 13:24 | NUR ---
PT COMPLAINING OF PAIN POST HD. ADMINISTERED PRN NORCO PRESCRIBED PER MD ORDER. ADMINISTERED SCHED IVATB PRESCRIBED PER MD ORDER. PT TOLERATED WELL. WILL CONTINUE TO MONITOR
--- NOTE | 2021-01-03 13:43 | NUR ---
PROVIDED RD RECOMMENDATIONS TO DR. COLE. RECEIVED TORB FOR NEPHRO-EAN AND CULTURELLE DAILY.
--- NOTE | 2021-01-03 14:00 | NUR ---
01/03/21 RD FOLLOW UP COMPLETED PLEASE REFER TO NUTRITION ASSESSMENT UNDER CARE ACTIVITY FOR ESTIMATED NUTRITIONAL NEEDS. 1. CONTINUE BRAT DIET TOLERATED 2. RECOMMEND TO ADVANCE TO BLAND AND RENAL DIET WHEN MEDICALLY STABLE 3. RECOMMEND NEPRO BID 4. RECOMMENDED NEPHRO-EAN AND CULTURELLE DAILY 5. RD TO FOLLOW-UP 2-3 DAYS, HIGH RISK FRANCE SUGGS RD Addendum: 01/03/21 at [address] NEPRO TIZina
[2021-01-03 16:00] VITALS: BP 116/78
--- NOTE | 2021-01-03 16:20 | NUR ---
PT HAS NOT HAD ANY BOWEL MOVEMENTS TODAY THUS FAR. PT IS AWARE THAT STOOL COLLECTION IS NECESSARY VERBALIZED UNDERSTANDING. SAFETY MEASURES IN PLACE. WILL CONTINUE TO MONITOR
--- NOTE | 2021-01-03 17:44 | NUR ---
ADMINISTERED SCHED MED PRESCRIBED PER MD ORDER. PT TOLERATED WELL. MEDICATION EDUCATION PERFORMED. PT VERBALIZED UNDERSTANDING. SAFETY MEASURES IN PLACE. WILL CONTINUE TO MONITOR
--- NOTE | 2021-01-03 19:25 | NUR ---
ENDORSED TO NIGHTSHIFT FOR CONTINUITY OF CARE. PT IS STABLE.
--- NOTE | 2021-01-03 19:30 | NUR ---
RECEIVED REPORT FROM MAURIZIO WALTON DAYSHIFT NURSE AT BEDSIDE FOR CONTINUITY OF CARE, PT IN STABLE CONDITION.
[2021-01-03 20:00] VITALS: BP 139/78
--- NOTE | 2021-01-03 20:00 | NUR ---
PT HAD A LOOSE BM, STOOL SAMPLE COLLECTED AND SENT TO LAB FOR C-DIFF SCREENING. PT WAS CLEANED, TURNED AND REPOSITIONED IN BED .PT IS AOX4 AND HE DENIES PAIN AT THIS TIME. HE HAS A LEFT UPPER ARM AV SHUNT THRILL ANDS BRUIT FELT. R F/A 22G INTACT AND RUNNING NORMAL SALINE AT 10MLS/HR TO KVO. PT ON ROOM AIR RESPIRATIONS EVEN AND UNLABORED. V/S FOLLOWS: T 97.8 P 88 R 18 B/P 139/78 02 100% ON ROOM AIR. PT REQUESTING IMODIUM FOR LOOSE STOOL. WILL CONTACT MD FOR NEW ORDER. ALL ORDERED PRECAUTIONS IN PLACE.
--- NOTE | 2021-01-03 22:30 | NUR ---
TEXTED [employer] PROGRAMMER MD COLE REGARDING PT REQUEST FOR IMODIUM , OK TO GIVEN 2MG CAPSUL Q2HR PO/PRN FOR LOOSE STOOL. WILL PLACE ORDER AND AWAIT PHARMACY CLEARANCE. PT MADE AWARE. ALL REQUESTED NEEDS ATTENDED BY STAFF AND ALL ORDERED PRECAUTIONS IN PLACE.
[2021-01-03] MEDS ORDERED: LOPERAMIDE 2 MG CAP PO PRN (22:50)
[2021-01-04] VITALS: BP 147/68
--- NOTE | 2021-01-04 | NUR ---
PT HAD ANOTHER LARGE LOOSE STOOL, AND HE HAD C/O 7/10 GENERALIZED PAIN, PT WAS GIVEN PO IMODIUM FOR LOOSE STOOL AND PO NORCO FOR PAIN . EDUCATION REGARDING PRN MEDS PROVIDED AT BEDSIDE, PT VERBALIZED UNDERSTANDING. V/S FOLLOWS: T 98.3 P 97 R 18 B/P 147/68 02 98% ON ROOM AIR. ALL ORDERED PRECAUTIONS IN PLACE.
[2021-01-04] MEDS: VANCOMYCIN 1,000 MG VIAL PO SCH ×5 (00:50→23:26)
--- NOTE | 2021-01-04 00:50 | NUR ---
VANCOCIN PO GIVEN ORDERED FOR DX OF INFECTIOUS COLITIS.
--- NOTE | 2021-01-04 02:30 | NUR ---
PT ASKED FOR SUPPLEMENTAL 02 VIA N/C.
[2021-01-04 04:00] VITALS: BP 148/91
[2021-01-04] MEDS: LEVOTHYROXINE 0.112 MG TAB PO SCH (06:27)
[2021-01-04] MEDS: HYDROcodone/APAP 7.5/325 MG 1 TAB PO PRN ×2 (06:33→13:41)
--- NOTE | 2021-01-04 06:35 | NUR ---
PT GIVEN ORDERED SYNTHROID AND REQUESTED NORCO FOR 7/10 GENERAL BODY ACHES. ALL ORDERED PRECAUTIONS IN PLACE.
[2021-01-04] MEDS: BLOOD GLUCOSE MONITORING 1 DEV DEV FS SCH ×4 (06:37→20:40)
[2021-01-04 06:55] LABS: ANION GAP 15.1 (8-16); CHLORIDE 100 mmol/L (98-107); GLUCOSE 93 mg/dL (74-106); POTASSIUM 4.1 mmol/L (3.5-5.1); SODIUM SERUM 136 mmol/L (136-145); UREA NITROGEN, BLOOD 40 mg/dL (7-18)
[2021-01-04 06:58] LABS: HEMATOCRIT 29.5 % (36-52); HEMOGLOBIN 9.4 g/dL (12.0-18.0); MEAN CORPUSCULAR HEMOGLOBIN 30 pg (27-31); MEAN CORPUSCULAR HGB CONC 32 g/dL (33-37); MEAN CORPUSCULAR VOLUME 94.5 fL (80-94); PLATELET COUNT (AUTO) 613 K/uL (140-450); RED BLOOD CELL COUNT(AUTO) 3.12 MIL/uL (4.20-6.10); RED CELL DISTRIBUTION WIDTH 16.5 % (11.6-13.7)
[2021-01-04 06:59] LABS: CREATININE 5.6 mg/dL (0.6-1.3)
[2021-01-04 08:00] VITALS: BP 145/71
[2021-01-04 08:02] LABS: EOSINOPHILS % (MANUAL) 2 % (0-4); LYMPHOCYTES % (MANUAL) 5 % (20-46); MONOCYTES % (MANUAL) 10 % (5-12)
[2021-01-04] MEDS: MEROPENEM 500 MG in NACL 0.9% 50 ML IV SCH ×2 (09:00→20:34)
[2021-01-04] MEDS: PHARMACY COMMENTS MC SCH (09:00)
[2021-01-04] MEDS: carvediloL 6.25 MG TAB PO SCH (09:59)
[2021-01-04] MEDS: ASPIRIN 81 MG TAB.CHEW PO SCH (09:59)
[2021-01-04] MEDS: LACTOBACILLUS RHAMNOSUS GG 1 EACH CAP PO SCH (09:59)
[2021-01-04] MEDS: VIT-B COMP/VIT-C/FOLIC ACID 1 TAB PO SCH (09:59)
[2021-01-04] MEDS: NIFEdipine 90 MG TABER PO SCH (09:59)
[2021-01-04] MEDS: SEVELAMER CARBONATE 800 MG TAB PO SCH ×3 (10:03→16:34)
--- NOTE | 2021-01-04 10:09 | NUR ---
AM SCHEDULED MEDS GIVEN, MEDS EDUCATION PROVIDED, PATIENT VERBALIZED UNDERSTANDING, PATIENT TOLERATED PO MEDS WELL WITH SIPS OF WATER. PATIENT DENIED OF ANY DISTRESS AT THIS TIME. SAFETY MEASURES IN PLACE. BED IN LOW POSITION, CALL LIGHT WITHIN REACH, INSTRUCTED PATIENT TO USE THE CALL LIGHT, PATIENT SAID OK.
--- NOTE | 2021-01-04 11:57 | NUR ---
BLOOD GLUCOSE 134, NO COVERAGE NEEDED. PATIENT AWAKE AND TALKING ON THE PHONE WITH SON, NO SIGNS OF ACUTE DISTRESS NOTED. SAFETY MEASURES IN PLACE.
[2021-01-04 12:00] VITALS: BP 132/69
--- NOTE | 2021-01-04 12:23 | NUR ---
RECEIVED CRITICAL LAB FOR C-DIFF POSITIVE, DR NELSON MADE AWARE. ISOLATION PROTOCOL IN PLACE.
--- NOTE | 2021-01-04 12:49 | NUR ---
SCHEDULED MEDS ADMINISTERED, PATIENT IS HAVING LUNCH AT THIS TIME. NO SIGNS OF ACUTE DISTRESS NOTED. SAFETY MEASURES IN PLACE.
--- NOTE | 2021-01-04 13:43 | NUR ---
ATTENDED TO PATIENT'S CALL LIGHT, PATIENT COMPLAINED 5/10 BODY ACHES PAIN, HE DESCRIBES PRESSURE, TIGHT, AND SHARP, MEDICATED WITH PRN NORCO, MED EDUCATION PROVIDED, PATIENT SAID OK. PATIENT IS RESTING ON BED AT THIS TIME. NO SIGNS OF ACUTE DISTRESS NOTED. SAFETY MEASURES IN PLACE.
[2021-01-04 16:00] VITALS: BP 140/70
[2021-01-04] MEDS: allopurinoL 100 MG TAB PO SCH (16:35)
--- NOTE | 2021-01-04 16:40 | NUR ---
BLOOD GLUCOSE 138, NO COVERAGE. SCHEDULED MEDS GIVEN, MEDS EDUCATION PROVIDED, PATIENT VERBALIZED UNDERSTANDING. PATIENT AWAKE AND RESTING ON BED. NO SIGNS OF ACUTE DISTRESS NOTED. SAFETY MEASURES IN PLACE.
--- NOTE | 2021-01-04 18:08 | NUR ---
SCHEDULED VANCOCIN GIVEN, PATIENT TOLERATED WELL. PATIENT AWAKE AND RESTING ON BED. NO SIGNS OF ACUTE DISTRESS NOTED. SAFETY MEASURES IN PLACE.
--- NOTE | 2021-01-04 19:30 | NUR ---
RECEIVED REPORT FROM ROSALIE RN DAYSHIFT NURSE AT BEDSIDE FOR CONTINUITY OF CARE, PT IN STABLE CONDITION.
[2021-01-04 20:00] VITALS: BP 100/60
--- NOTE | 2021-01-04 20:00 | NUR ---
PT IN BED RESTING WITH 3 LITERS OF N/C IN PLACE. PT HAS IV SITE R/FA 22G RUNNING NORMAL SALINE TO KVO. V/S FOLLOWS: T 97.4 P 89 R 18 B/P 100/60 02 100% PT JOSETTE ANY PAIN , NO C/ OF LOOSE STOOL AT THIS TIME. LAV SHUNT UPPER ARM INTACT AND ASYMPTOMATIC. [facility] NURSE CALLED TO CONFIRM HD ORDER FOR TOMORROW. ALL ORDERED PRECAUTIONS IN PLACE.
--- NOTE | 2021-01-04 21:00 | NUR ---
PT REQUESTS HIS ALBUTEROL INHALER, NO ORDER FOR THIS RECONCILED MED FROM HOME. WILL CONTACT MD REGARDING PT REQUESTS. PT FINGERSTICK IS 154, PT DECLINE TO HAVE S/S COVERAGE OF 2 UNITS. MERREM HUNG AND PURPOSE AND SIDE EFFECTS DISCUSSED AT BEDSIDE, PT MADE AWARE THAT HE IS POSITIVE FOR C-DIFF. PT VERBALIZED UNDERSTANDING OF TEACHING. ALL CONTACT AND FALLS PRECAUTIONS IN PLACE.
--- NOTE | 2021-01-04 22:00 | NUR ---
CONTACTED MD REGARDING PT REQUESTS. MD SAID OK TO CONTINUE WITH HOME THIS HOME RECONCILED MEDICATION PRN FOR C/O OF SOB. PT MADE AWARE THAT MEDICATION WAS ORDERED BUT WILL NOT BE AVAILABLE FROM PHARMACY UNTIL TOMORROW. PT REQUESTS SNACKS WHICH WERE PROVIDED AT BEDSIDE. ALL ORDERED PRECAUTIONS IN PLACE.
[2021-01-04] MEDS ORDERED: ALBUTEROL HFA MDI 90 MCG/ACTUATION 8 GM INH PRN (22:30)
[2021-01-05] VITALS: BP 122/60
--- NOTE | 2021-01-05 | NUR ---
PT GIVEN ORDERED VANCOCIN WITH REQUESTED JUICE. V/S FOLLOWS: T 97.7 P 86 R 18 B/P 122/60 02 100% WITH 3 LITERS VIA N/C. N/S RUNNING TO KVO, IV SITE INTACT. PT DENIES ANY PAIN NO LOOSE STOOL NOTED AND NO ADVERSE EFFECTS FROM ABT'S. ALL ORDERED PRECAUTIONS IN PLACE.
[2021-01-05 04:00] VITALS: BP 109/58
[2021-01-05] MEDS: HYDROcodone/APAP 7.5/325 MG 1 TAB PO PRN ×2 (04:10→15:21)
--- NOTE | 2021-01-05 04:30 | NUR ---
PT SITTING UP IN BED AOX4 CONTINUES ON 3 LITERS VIA N/C. V/S FOLLOWS: T 97.9 P 91 R18 B/P 109/58 02 100%. NS AT 10 TO KVO. ALL ORDERED PRECAUTIONS IN PLACE. PT GIVEN NORCO FOR MODERATE GENERALIZED PAIN.
[2021-01-05] MEDS: LEVOTHYROXINE 0.112 MG TAB PO SCH (06:29)
[2021-01-05] MEDS: VANCOMYCIN 1,000 MG VIAL PO SCH ×2 (06:29→12:25)
--- NOTE | 2021-01-05 06:30 | NUR ---
FINGERSTICK IS 117 NO NEED FOR HUMALOG COVERAGE.
[2021-01-05] MEDS: BLOOD GLUCOSE MONITORING 1 DEV DEV FS SCH ×3 (06:36→16:58)
--- NOTE | 2021-01-05 07:30 | NUR ---
RECEIVED BEDSIDE REPORT FROM METER READING CLERK NURSE. PATIENT IS AOX4 AND ABLE TO MAKE NEEDS KNOWN. RESPIRATION EVEN AND UNLABORED. ON 4L NC SATING AT 98%. NO S/S OF RESPIRATORY DISTRESS NOTED. SKIN IS WARM AND DRY. IV SITE ON RFA 22 G INFUSING FLUIDS WELL. HAS AV SHUNT ON LEFT UPPER ARM. WILL UNDERGO HEMODIALYSIS TREATMENT TODAY. PLAN OF CARE DISCUSSED. SAFETY PRECAUTIONS IN PLACE. BED IN LOW POSITION. WILL CONTINUE TO MONITOR.
[2021-01-05 08:34] LABS: ANION GAP 13.7 (8-16); CARBON DIOXIDE 25.8 mmol/L (21-32); CHLORIDE 98 mmol/L (98-107); GLUCOSE 140 mg/dL (74-106); POTASSIUM 4.5 mmol/L (3.5-5.1); SODIUM SERUM 133 mmol/L (136-145); UREA NITROGEN, BLOOD 59 mg/dL (7-18)
[2021-01-05 08:40] LABS: CREATININE 7.4 mg/dL (0.6-1.3)
[2021-01-05] MEDS: SEVELAMER CARBONATE 800 MG TAB PO SCH ×2 (08:58→12:22)
[2021-01-05] MEDS: ASPIRIN 81 MG TAB.CHEW PO SCH (08:58)
[2021-01-05] MEDS: VIT-B COMP/VIT-C/FOLIC ACID 1 TAB PO SCH (08:58)
[2021-01-05] MEDS: NIFEdipine 90 MG TABER PO SCH (08:59)
[2021-01-05] MEDS: LACTOBACILLUS RHAMNOSUS GG 1 EACH CAP PO SCH (08:59)
[2021-01-05] MEDS: carvediloL 6.25 MG TAB PO SCH (08:59)
[2021-01-05] MEDS: PHARMACY COMMENTS MC SCH (09:00)
[2021-01-05] MEDS: MEROPENEM 500 MG in NACL 0.9% 50 ML IV SCH (09:00)
[2021-01-05 09:03] LABS: BASOPHILS # (AUTO) 0.1 K/uL (0.00-0.22); BASOPHILS % (AUTO) 0.4 % (0.0-2.0); EOSINOPHILS # (AUTO) 0.5 K/uL (0-0.4); EOSINOPHILS % (AUTO) 2.3 % (0.0-4.0); HEMATOCRIT 26.8 % (36-52); HEMOGLOBIN 8.6 g/dL (12.0-18.0); LYMPHOCYTES # (AUTO) 0.8 K/uL (2.0-11.5); LYMPHOCYTES % (AUTO) 4.2 % (20.5-51.1); MEAN CORPUSCULAR HEMOGLOBIN 30 pg (27-31); MEAN CORPUSCULAR HGB CONC 32 g/dL (33-37); MEAN CORPUSCULAR VOLUME 94.1 fL (80-94); MONOCYTES # (AUTO) 1.1 K/uL (0.8-1.0); MONOCYTES % (AUTO) 5.3 % (1.7-9.3); NEUTROPHILS # (AUTO) 17.5 K/uL (1.8-7.7); NEUTROPHILS % (AUTO) 87.8 % (42.2-75.2); PLATELET COUNT (AUTO) 610 K/uL (140-450); RED BLOOD CELL COUNT(AUTO) 2.85 MIL/uL (4.20-6.10); RED CELL DISTRIBUTION WIDTH 16.7 % (11.6-13.7); WHITE BLOOD COUNT (AUTO) 19.9 K/uL (4.8-10.8)
--- NOTE | 2021-01-05 09:15 | NUR ---
ALL SCHEDULED MEDS GIVEN. PT IS STABLE NO DISTRESS NOTED. WILL CONTINUE TO MONITOR.
--- NOTE | 2021-01-05 10:30 | NUR ---
PATIENT UNDERGOING DIALYSIS TREATMENT AT THE MOMENT.
--- NOTE | 2021-01-05 12:00 | NUR ---
BLOOD GLUCOSE CHECK WAS 173. ADMINISTERED 2 UNITS OF INSULIN SQ PER MD ORDERED.
[2021-01-05] MEDS ORDERED: VAN1I PO (13:19)
[2021-01-05] MEDS ORDERED: MERO500V16 IV (13:19)
--- NOTE | 2021-01-05 13:35 | NUR ---
PATIENT COMPLETED DIALYSIS PROCEDURE AND THE FLUID OUTPUT WAS 2L. PT IS STABLE. NO DISTRESS NOTED. WILL CONTINUE TO MONITOR.
--- NOTE | 2021-01-05 14:32 | NUR ---
01/05/21 RD FOLLOW UP COMPLETED PLEASE REFER TO NUTRITION ASSESSMENT UNDER CARE ACTIVITY FOR ESTIMATED NUTRITIONAL NEEDS. 1. CONTINUE RENAL DIET TOLERATED 2. ENCOURAGE PO INTAKE OVER 75% 3. CONTINUE NEPRO TID 4. CONTINUE NEPHRO-EAN AND CULTURELLE DAILY 5. RD TO FOLLOW-UP 2-3 DAYS, HIGH RISK [place] SUGGS, RD
--- NOTE | 2021-01-05 14:45 | NUR ---
INFORMED PATIENT THAT HE WILL BE DISCHARGED TODAY TO [facility] AND FAMILY IS AWARE OF PATIENT TRANSFERRING TO ANOTHER FACILITY. PATIENT VERBALIZED UNDERSTANDING.
[2021-01-05 15:22] VITALS: BP 121/69
--- NOTE | 2021-01-05 16:30 | NUR ---
DISCUSSED PATIENT'S DISCHARGE INSTRUCTIONS. PATIENT VERBALIZED UNDERSTANDING. AWAITING FOR TRANSPORTATION TO ARRIVE.
--- NOTE | 2021-01-05 17:02 | NUR ---
[facility] TRANSPORTATION ARRIVED. PATIENT IS BEING TRANSFERRED TO [facility] TO ROOM 127B TO CONTINUE ABX TREATMENT. PT IS STABLE PRIOR TO DISCHARGE.
== END 2021-01-05 17:10 | disposition short-term general hospital (02) | DRG 871 ==
LOC: MED 10:42 → MTU 14:22
PROVIDERS: ADMIT Emergency Medicine; ATTEND Emergency Medicine
PROC: 30233N1 Transfusion of Nonautologous Red Blood Cells into Peripheral Vein, Percutaneous Approach (ICD-10-PCS; principal; 2021-01-02)
DX: A41.9 Sepsis, unspecified organism (principal); J69.0 Pneumonitis due to inhalation of food and vomit; N18.6 End stage renal disease; J96.01 Acute respiratory failure with hypoxia; A09 Infectious gastroenteritis and colitis, unspecified; A04.72 Enterocolitis due to Clostridium difficile, not specified as recurrent; I12.0 Hypertensive chronic kidney disease with stage 5 chronic kidney disease or end stage renal disease; K57.92 Diverticulitis of intestine, part unspecified, without perforation or abscess without bleeding; Z99.2 Dependence on renal dialysis; E11.22 Type 2 diabetes mellitus with diabetic chronic kidney disease; E89.0 Postprocedural hypothyroidism; I25.10 Atherosclerotic heart disease of native coronary artery without angina pectoris; E78.5 Hyperlipidemia, unspecified; D63.8 Anemia in other chronic diseases classified elsewhere; Z20.822 Contact with and (suspected) exposure to COVID-19; Z95.1 Presence of aortocoronary bypass graft
CPT/HCPCS: 36415; 71045; 80048; 80053; 81001; 82272; 82948; 83036; 83605; 83735; 83880; 84100; 84439; 84443; 84484; 85025; 85610; 85730; 86886; 86900; 86901; 86920; 87040; 87070; 87081; 87086; 93005; 96374; 96375; 97110; 97530; 99285; C1758; J1815; J1885; J1956; J2185; J3370; J3490; J7030; P9016